=== PATIENT | female | born 1965 | race Caucasian/White ===

== ENCOUNTER 2016-11-22 08:25 | Outpatient (CLI) | payer BC ==
--- NOTE | 2016-11-22 14:35 | DIAGNOSTIC IMAGING REPORT ---
PROCEDURE: MR LOWER EXT NONJOINT W/WO-RT INDICATION: PAIN , swelling RIGHT FOOT, PREV SURG TECHNIQUE: 06/07 and STIR sequences of the forefoot in the sagittal, axial, coronal projection, three plain T1 fat sat postcontrast sequences COMPARISON: None FINDINGS: In the interspace between the first and second proximal phalanges, there is no suspicious enhancing mass. Severe subluxation at the second metatarsal-phalangeal joint with nearly one full shaft width of dorsal displacement and half shaft width of medial displacement of the second phalanx. There is moderate sized second MTP joint effusion with enhancement. Enhancing tenosynovitis and trace focal enhancement of the second flexor tendon at the level of the second metatarsal neck. Lateral sided plantar plate disruption resulting in plantar displacement of the second flexor tendon at the level of the proximal phalanx neck. (Series 6 image 10). Multilobulated tenosynovitis lateral and distal to the proximal phalanx. Subcutaneous edema and enhancement surrounds the mid to distal second phalanx. Soft tissue enhancement surrounding the neck of the second metatarsal including thickening, and focal proximal avulsion of the medial capsule and collateral ligaments at the metatarsal head. Moderate cortical irregularity, subcortical cystic changes and spur formation at the first metatarsal head and mild spur formation and subcortical irregularity at the first proximal phalanx base. Moderate articular surface irregularity and slight enhancement. IMPRESSION: 1. No evidence of soft tissue mass or neuroma. 2. Subluxation/dislocation with associated ligamentous and capsular injury with effusion at the second MTP joint. 3. Volar plate disruption of the second ray at the proximal phalanx neck. 4. Peritendinous fluid collection and/or tenosynovitis lateral to the second flexor tendon. 5. Tenosynovitis and mild tendonitis of the second flexor tendon at the second metatarsal neck level. 5. Moderate degeneration at the first MTP joint
== END 2016-11-22 23:00 ==
LOC: MRI SRH 08:25
DX: S93.321A Subluxation of tarsometatarsal joint of right foot, initial encounter (principal); M19.071 Primary osteoarthritis, right ankle and foot; M65.871 Other synovitis and tenosynovitis, right ankle and foot